=== PATIENT | male | born 1995 | race Caucasian/White ===

== ENCOUNTER 2019-05-29 21:08 | Emergency (ER) | payer OTHER, SELFPAY ==
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
[2019-05-29 21:06] VITALS: BP 104/57; PULSE 103; RESP 20; O2SAT 100
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
[2019-05-29] MEDS: HYDROMORPHONE HCL 1 MG/ML INJ 0.5 MG IV PUSH (21:55)
[2019-05-29] MEDS: PROMETHAZINE HCL 25 MG/ML AMPUL 12.5 MG IV PUSH (21:55)
[2019-05-29 22:19] LABS: Blood Urea Nitrogen 17 mg/dL (8-26); Estimated Glomerular Filt Rate > 60
[2019-05-29 23:53] VITALS: PULSE 92; RESP 20; O2SAT 100
[2019-05-30] VITALS (8 sets, daily range): BP systolic 99–141; BP diastolic 43–74; PULSE 93–108; RESP 16–20; TEMP 36.4–36.6; O2SAT 97–100
[2019-05-30] MEDS: SODIUM CHLORIDE 0.9% IV 1,000 ML 999 ML IV CONT (00:07)
[2019-05-30] MEDS: HYDROMORPHONE HCL 1 MG/ML INJ IV PUSH (00:08)
[2019-05-30] MEDS: ONDANSETRON INJ 4 MG/2 ML VIAL IV PUSH (00:08)
--- NOTE | 2019-05-30 00:15 | PC.NURSE ---
Addendum entered by Kizzy Odonnell 05/30/19 04:21: Called [facility] for status...ETA approximately 7 minutes. Addendum entered by Kizzy Odonnell 05/30/19 03:39: Called [facility] and cancelled trip due to unknown ETA. Addendum entered by Kizzy Odonnell 05/30/19 03:29: 0317: Called [facility] to transport patient to [facility] ED...DECLINED. 0318: Called [facility] to transport patient to [facility] ED...Accepted...ETA approximately 30 minutes. Addendum entered by Kizzy Odonnell 05/30/19 03:14: Called [facility] for updated ETA...0400 Addendum entered by Kizzy Odonnell 05/30/19 02:45: 0150: Called [facility] for updated ETA....[id number] Original Note: Called [facility] to transport to [facility]...ETA 0130. #[id number]
--- NOTE | 2019-05-30 02:16 | PC.NURSE ---
Patient updated on ETA of EMS arrival to be 0230 to 0300. Patient given a few ice chips per request. Patient has his father at the bedside. VSS, patient resting comfortably on stretcher. Patient offers no complaints at this time.
--- NOTE | 2019-05-30 02:20 | PC.NURSE ---
Dressing change preformed to wound on left lateral thigh. Wet to dry dressing placed, patient tolerated well.
[2019-05-30] MEDS: HYDROMORPHONE HCL 1 MG/ML INJ 0.5 MG IV PUSH (03:11)
--- NOTE | 2019-05-30 03:11 | PC.NURSE ---
0.5mg of Dilaudid given IVP. MAR would not scan medication. Patient verified by birthday and name. Patient VS are 97bpm, 99% on RA, 19RR, and 130/68BP in the right arm supine.
== END 2019-05-30 04:43 | disposition short-term general hospital (02) ==
PROVIDERS: Emergency Provider Emergency Medicine; PCP Family Medicine
DX: S71.122A Laceration with foreign body, left thigh, initial encounter (principal); S32.392A Other fracture of left ilium, initial encounter for closed fracture; S32.028A Other fracture of second lumbar vertebra, initial encounter for closed fracture; S32.038A Other fracture of third lumbar vertebra, initial encounter for closed fracture; S32.048A Other fracture of fourth lumbar vertebra, initial encounter for closed fracture; S32.512A Fracture of superior rim of left pubis, initial encounter for closed fracture; S32.592A Other specified fracture of left pubis, initial encounter for closed fracture; V43.52XA Car driver injured in collision with other type car in traffic accident, initial encounter
CPT/HCPCS: 70450; 71260; 72125; 73552; 73630; 74177; 96361; 96374; 96375; 99285; J1170; J2405; J2550; J7030; Q9967

== ENCOUNTER 2021-12-01 03:18 | Emergency (ER) | payer OTHER, SELFPAY ==
[2021-12-01] VITALS (10 sets, daily range): BP systolic 148; BP diastolic 88; PULSE 75–86; RESP 11–21; O2SAT 98–99
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
--- NOTE | 2021-12-01 03:40 | ED.GENADULT ---
HPI - General Adult General Chief complaint: Abdominal Pain Stated complaint: abd pain Time Seen by Provider: 12/01/21 03:39 History of Present Illness HPI narrative: 6-year-old male presenting ED with a chief complaint of abdominal pain. Pain started yesterday morning. It woke him up from sleep. Described as an achy pain to the left of his belly button. It is nonradiating, 5/10 in intensity, constant getting worse. Patient has never experienced pain like this before. It is exacerbated by movement and relieved with Tylenol. Patient denies nausea or vomiting or diarrhea. Last bowel movement was yesterday and was normal in nature. Patient has a history of an Jose Procedure much his appendix was attached to his bellybutton and flushed throughout the day to facilitate bowel movements. Related Data Home Medications Medication Instructions Recorded Confirmed buspirone 5 mg tablet 5 mg PO BID 10/30/19 10/30/19 sertraline 50 mg tablet 100 mg PO DAILY 10/30/19 10/30/19 Allergies Allergy/AdvReac Type Severity Reaction Status Date / Time morphine AdvReac Severe increased Verified 12/01/21 03:50 anxiety Review of Systems Review of Systems: CONSTITUTIONAL: Denies night sweats. EYES: No eye pain ENT: Denies rhinorrhea CARDIOVASCULAR: Denies palpitations RESPIRATORY: Denies hemoptysis GASTROINTESTINAL: Denies hematemesis GENITOURINARY: Denies hematuria. SKIN: Denies rash MUSCULOSKELETAL: Denies myalgia. NEUROLOGIC: Denies weakness. PSYCHIATRIC: Denies delusions PMFSH Past Medical History Medical History (Updated 12/01/21 @ 06:52 by Gus Lee MD) Migraines Umbilical hernia Surgical History Surgical History Hx of umbilical hernia repair Family History Family History (Updated 12/04/13 @ 07:13 by DOCTOR UNKNOWN) Mother Depression Social History Social History (Updated 10/30/19 @ 10:33 by Sena Cooper) Smoking status: Never smoker Alcohol intake: never Substance use: never Substance use type: does not use Gender identity (if verbalized by the patient): Male Exam Narrative: APPEARANCE: No apparent distress. Head atraumatic. EYES: PERRLA/EOMI, NOSE: Normal no drainage NECK: Supple, Trachea midline RESPIRATORY: CTAB, No increased work of breathing. CARDIOVASCULAR: S1S2 appreciated ABDOMINAL: Soft, nondistended. patient's belly button has residual scar tissue from his JOSE procedure. There is tenderness to palpation to the left of the umbilicus and a small mass is palpated. No overlying skin changes. MUSCULOSKELETAl: No obvious deformities NEURO: Alert. Moving 4/4 extremities SKIN:: Warm, dry. Normal color PSYCHIATRIC: Normal affect Course Vital Signs Vital signs: Vital Signs Pulse Oximetry 98 12/01/21 03:25 Pulse Rate 75 12/01/21 06:00 Respiratory Rate 11 L 12/01/21 06:00 Pulse Oximetry 99 12/01/21 06:00 Medical Decision Making MDM Narrative Medical decision making narrative: This is a 26-year-old male presenting to ED with abdominal pain. Abdominal lab work and CT abdomen pelvis were ordered to evaluate for an incarcerated umbilical hernia as well as possible complications from the Jose procedure. CT abdomen pelvis showed a inflamed umbilical hernia that appears to be extending into an appendix like structure. However when I discussed this with the patient the Jose procedure had bee reversed 10 years ago and at that time his appendix had been removed. I discussed this with the surgeon on-call Dr. Hughes. As the patient's vital signs are normal, lab work is unremarkable, pain is improved and tolerable, and he is overall well appearing we believe the patient can follow-up on an outpatient basis. This was discussed with the patient and he is in agreement with the plan. The patient was given strict return precautions. Vital Signs Vital Signs: Vital Signs Pulse Oximetry 98 08
[2021-12-01 04:08] LABS: Basophils Absolute Auto 0.1 K/mm3 (0.0-0.1); Basophils Percent Auto 0.5 % (0.2-1.2); Eosinophils Absolute Auto 0.1 K/mm3 (0-0.3); Eosinophils Percent Auto 0.6 % (0-4.4); Hematocrit 45.6 % (42.0-52.0); Hemoglobin 15.3 g/dL (14.0-18.0); Immature Granulocyte Absolute 0.02 K/mm3 (0.00-0.031); Immature Granulocyte Percent A 0.2 % (0-0.5); Lymphocytes Absolute Auto 2.07 K/mm3 (0.9-3.2); Lymphocytes Percent Auto 19.4 % (18.3-44.2); Mean Corpuscular HGB Conc 33.6 g/dl (32-36); Mean Corpuscular Hemoglobin 28.7 pg (26-34); Mean Corpuscular Volume 85.4 fl (80-100); Mean Platelet Volume 9.2 fl (7.4-10.4); Monocytes Absolute Auto 0.9 K/mm3 (0.1-0.6); Monocytes Percent Auto 8.7 % (2.6-8.5); Neutrophils Absolute Auto 7.5 K/mm3 (1.3-6.7); Neutrophils Percent Auto 70.6 % (45.5-73.1); Platelet Count Result 262 k/mm3 (150-375); Red Blood Count 5.34 M/mm3 (4.6-6.20); Red Cell Distribution Width 12.6 % (11.5-14.5); White Blood Count 10.7 K/mm3 (4.5-10.0)
[2021-12-01] MEDS: IBUPROFEN 400 MG TABLET 800 MG PO (04:09)
[2021-12-01 04:24] LABS: Alanine Aminotransferase 25 U/L (6-50); Albumin Level 4.6 g/dL (3.5-5.1); Alkaline Phosphatase 77 U/L (38-126); Anion Gap 10 mmol/L (8-16); Aspartate Amino Transferase 29 U/L (17-59); Bilirubin,Total 1.2 mg/dL (0.2-1.3); Blood Urea Nitrogen 15 mg/dL (9-20); Calcium 8.9 mg/dL (8.4-10.2); Carbon Dioxide 28 mmol/L (22-30); Chloride 101 mmol/L (98-107); Estimated CRCL calculation 192 ml/min; Estimated Glomerular Filt Rate > 60; Glucose 102 mg/dL (65-110); Lactic Acid Reflex 0.6 mmol/L (0.7-2.0); Lipase 49 U/L (23-300); Potassium 3.8 mmol/L (3.4-5.0); Sodium 139 mmol/L (137-145)
== END 2021-12-01 07:03 | disposition home or self-care (01) ==
PROVIDERS: Emergency Provider Emergency Medicine; PCP Family Medicine
DX: K46.0 Unspecified abdominal hernia with obstruction, without gangrene (principal)
CPT/HCPCS: 36415; 74177; 80053; 83605; 83690; 85025; 99284; A9270; Q9967

== ENCOUNTER 2022-06-12 10:21 | Outpatient (CLI) | payer OTHER, SELFPAY | END 2022-06-12 10:22 | disposition home or self-care (01) | LOC: ANHSURGERY 10:25 | PROVIDERS: PCP Family Medicine; Visit Provider Surgery | DX: K43.2 Incisional hernia without obstruction or gangrene (principal); Z01.818 Encounter for other preprocedural examination | CPT/HCPCS: 36415; 86850; 86900; 86901 ==

== ENCOUNTER 2022-06-16 00:44 | Day surgery (SDC) | payer OTHER, SELFPAY ==
[2022-06-06 09:39] VITALS: BMI 43.6
--- NOTE | 2022-06-06 09:45 | PC.NURSE ---
Addendum entered by Edward Conley RN 06/06/22 09:56: Shower morning of surgery with Julee. Original Note: Report to the Outpatient Waiting Room, entrance under the green pavilion located off [address], at time _1100_ on date _[id number]_. Planned Procedure Time: _1pm_. Time changes happen often and if your time is changed the preop area will call you the afternoon before. - You and your visitor will be asked to self-screen and do not enter if you have any COVID symptoms. - Only one visitor is requested with a max of two and NO children visitors are allowed at this time. - The patient visitor may be requested to leave or wait in car when not with patient due to distancing restrictions. - A mask is optional within the hospital at this time. Patients may have clear liquids (water, carbonated beverages, clear teas, apple juice) until 3 hours prior to surgery with a maximum of 20 ounces. - No food from midnight until time of surgery Take the following medications with a SIP of water the morning of surgery: None DO NOT STOP ANY OF YOUR OTHER PRESCRIPTION MEDICATIONS PRIOR TO SURGERY ?EXCEPT THE FOLLOWING Medications to discontinue per physician None Date to take last dose Please no make-up, nail sinhala, hairspray, perfume, deodorant, or body powder the day of surgery. No jewelry (including any body piercings) or valuables the day of surgery, leave them at home. Please take a shower or bath the night before, or the morning of, surgery with an antibacterial soap. Wear comfortable, loose fitting clothing. - Jewelry must be removed prior to entering the operating room. Rings and piercings that are not removed may be cut off. - The hospital will not accept responsibility for valuables. - Please leave all valuables, including medications, at home the day of surgery. If you are going home after surgery, a licensed [facility] driver must drive you home. - NO public transportation without another adult if you receive anesthesia. - We recommend that an adult stay with you for 24 hours following discharge. - We also recommend that you do not drive, make important decision, drink alcoholic beverages, or take any drugs that were not prescribed by your health care provider for at least 24 hours after your discharge time. Follow any additional instructions given to you from your surgeon. If you or anyone in your household have experienced Covid symptoms in the past week, please notify your surgeon or the nurse liaison at the phone number below for possible testing. Telephone instructions given to _Patient___and asked if any additional questions and then verbalized understanding. Patient advised to call surgeon office or pre surgery nurse liaison [phone] if any additional questions.
[2022-06-16] VITALS (9 sets, daily range): BP systolic 126–140; BP diastolic 78–95; PULSE 81–103; RESP 16–20; TEMP 36.4–37.1; O2SAT 95–100
[2022-06-16] MEDS: LACTATED RINGERS 1,000 ML 30 ML IV CONT ×2 (08:24→13:02)
[2022-06-16] MEDS: ACETAMINOPHEN 500 MG TABLET 1000 MG PO (08:24)
[2022-06-16] MEDS: KETOROLAC 15 MG/ML VIAL (*BKC) IV PUSH (08:24)
--- NOTE | 2022-06-16 08:46 | P.PNAN_ITS ---
Anes - Initial Pre Proc Eval Procedure: Operation Date: 06/16/22 10:00 Proposed Procedures p Robotic Assisted Incisional Hernia Repair with Mesh - Bharati Hughes MD Date/Time: 06/16/22 08:46 Surgeon: Bharati Hughes MD Pre Op Diagnosis: Incisional hernia Patient Data Age: 26 Gender: M Height: 1.85 m Weight: 147.7 kg Last Vital Signs Temp 97.6 F 06/16/22 08:05 Pulse 95 06/16/22 08:05 Resp 16 06/16/22 08:05 BP 140/92 H 06/16/22 08:05 Pulse Ox 98 06/16/22 08:05 O2 Del Method Room Air 06/16/22 08:05 Allergies Allergy/AdvReac Type Severity Reaction Status Date / Time morphine AdvReac Severe increased Verified 06/16/22 08:23 anxiety Home Medications Medication Instructions Recorded Confirmed Type No Home Medications 06/06/22 06/06/22 History Patient hx anesthesia problems: none Family hx anesthesia problems: none Results Review: All pre-operative results and documents have been reviewed as part of the pre- operative evaluation. [facility] Past Medical History Medical History Anxiety Current mild episode of major depressive disorder without prior episode Migraines Umbilical hernia Surgical History Surgical History History of abdominal surgery JUAN JOSE procedure as a child with reversal in approximately 2011 which included appendectomy Family History Family History Mother Depression Brain tumor Father Diabetes mellitus Heart disease Hypertension Social History Social History Smoking status: Never smoker Alcohol intake: current Substance use: never Substance use type: does not use Living arrangements: with family Occupation/Education: occupation 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[employer] Gender identity (if verbalized by the patient): Male Spiritual care concerns: No Anes - Eval Final PreProcedure Day of Procedure 06/16/22 08:46 Patient weight: morbidly obese Heart: regular rate and rhythm Lungs: clear to auscultation Airway: Mallampati scale class II Neurological: alert and oriented Last oral intake: >/= 8 hours ASA classification: III Emergent: no Anesthetic plan: proceed Anesthesia type and monitoring: general ETT and standard monitoring Results Review: All pre-operative results and documents have been reviewed as part of the pre- operative evaluation. Informed Consent: The patient's anesthetic plan and its attendant risks and benefits were discussed with the patient/family/POA. Questions were solicited and answers provided to the satisfaction of the patient/family/POA.
--- NOTE | 2022-06-16 10:39 | WPDHPUPDATE1 ---
History and Physical Update Update Date/Time: 06/16/22 10:39 History and Physical has been reviewed, including an updated exam of the patient. There are NO changes in the patient's condition. Risks, benefits, and alternatives have been discussed and questions answered. Patient agrees to proceed with procedure.
[2022-06-16] MEDS: ceFAZolin 3 GM/D5W 100 ML 100 ML IVPB (11:05)
[2022-06-16] MEDS: BUPIVACAINE/EPINEPHRINE 0.25% 50 ML VIAL 30 ML INFILTRATE (12:03)
--- NOTE | 2022-06-16 12:50 | P.OP_ITS ---
Procedure Note - Detailed Date of Procedure 06/16/22 Pre-op Diagnosis Incisional hernia Post-op Diagnosis Same Procedure Performed Robotic assisted repair recurrent incarcerated incisional hernia with mesh Surgeon Bharati Hughes MD Anesthesia General Indications 26-year-old male with history Jose procedure status post reversal now with incisional hernia Findings periumbilical incisional hernia with noted cecum in hernia, hernia measuring approximately 4 cm Description of Procedure The patient was taken the operating room placed in the supine position. After adequate induction of general anesthesia, the patient was prepped and draped in normal sterile fashion. A time-out was then done to verify the patient's identity as well as the procedure being performed. I began by making a 5 mm incision in the left upper quadrant. Through this, a Veress needle was placed into the peritoneal cavity and CO2 gas was insufflated. After adequate pneumoperitoneum was achieved, a 5 mm trocar was placed through this incision. I then placed the laparoscope through this trocar site and under direct visualization I placed a 8 mm port in the left mid abdomen as well as an additional 8 mm port in the left lower abdomen. I then moved the camera to the lower port and replaced the 5 mm port with a 12 mm airport. The robot was then docked to the 3 port sites. I then went to the robotic console. I began by i dentifying the hernia. A moderate-sized incarcerated hernia was noted in the periumbilical region. Using graspers, I was able to reduce this hernia. The hernia was noted to contain cecum from his previous surgery. Once reduced, I also reduced and dissected out the hernia sac. I then closed the approximately 4 cm defect with 0 strata fix suture. I then placed a [address] mesh into the abdominal cavity. The positional stitch was placed in the middle of the mesh and brought up centering the mesh over the defect. Once this was done, I used 2 0 V lock suture x 2 to circumferentially suture the mesh to the abdominal. Once the mesh was completely sutured in, I was happy with our tension-free repair. The mesh was noted to have good overlap of the defect. I then removed the positioning device. At this point, the robot was undocked and all ports were removed. I then closed the 12 mm port site with an 0 Vicryl [id number] suture at the fascial level. All port sites were then closed with 4 O Monocryl subcuticular suture. The patient tolerated the procedure well, is extubated in the operating room postoperative, OB transferred to the recovery room in stable condition. Implants [address] mesh Estimated Blood Loss 10 Drains No Packing No Pathology None sent Complications No immediate complications Condition Stable Disposition PACU [facility] Billing Surgery - Charge Forward: Surgery Billing
[2022-06-16] MEDS: oxyCODONE HCL (*CRX) 5 MG TAB IR PO (14:21)
== END 2022-06-16 15:00 | disposition home or self-care (01) ==
PROVIDERS: PCP Family Medicine; Visit Provider Surgery
PROC: (CPT 49616; principal; 2022-06-16 10:00)
DX: K43.0 Incisional hernia with obstruction, without gangrene (principal)
CPT/HCPCS: 49616; 36415; 86850; 86900; 86901; A9270; C1781; J0690; J1100; J1170; J1885; J2250; J2405; J2704; J2710; J3010; J7120